=== PATIENT | female | born 1950 | race Caucasian/White ===

== ENCOUNTER 2016-08-25 18:30 | Emergency (ER) | payer MEDICARE ==
[2016-08-25 18:57] VITALS: BP 121/68
--- NOTE | 2016-08-25 19:44 | ER Document Report ---
ED Medical Screen (RME) - General Stated Complaint: CHEST PAIN,HEADACHE,SHOULDER PAIN Notes: 66 yo female c/o migraine headache x 5 days, hx/o chronic headaches. severe acid reflux after eating, no relief with TUMS and normal meds. shooting pains across front of chest intermittantly. reports having chest pain since having reflux. this chest pain is not new, but had [place] in May. TRAVEL OUTSIDE OF THE [place] 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 Has IVC filter as well. GI Medical History: Reports: Hx Gastroesophageal Reflux Disease Past Surgical History: Reports: Hx Abdominal Surgery, Hx Appendectomy, Hx Breast Surgery, Hx Hysterectomy, Hx Orthopedic Surgery - bilat knee replacement , R shoulder, L elbow, - Immunizations Hx Diphtheria, Pertussis, Tetanus Vaccination: No Physical Exam - Vital signs Vitals: Temp Pulse Resp BP Pulse Ox 98.0 F 93 20 121/68 93 08/25/16 18:56 08/25/16 18:56 08/25/16 18:56 08/25/16 18:56 08/25/16 18:56 Course - Vital Signs Vital signs: Temp Pulse Resp BP Pulse Ox 98.0 F 93 20 121/68 93 08/25/16 18:56 08/25/16 18:56 08/25/16 18:56 08/25/16 18:56 08/25/16 18:56
[2016-08-25 20:48] LABS: ABSOLUTE BASOPHILS # (AUTO) 0.1 10^3/uL (0.0-0.2); ABSOLUTE EOSINOPHILS # (AUTO) 0.4 10^3/uL (0.0-0.6); ABSOLUTE LYMPHOCYTES (AUTO) 2.7 10^3/uL (0.5-4.7); ABSOLUTE MONOCYTES (AUTO) 0.9 10^3/uL (0.1-1.4); ABSOLUTE NEUT (AUTO) 5.3 10^3/uL (1.7-8.2); BASOPHILS % (AUTO) 0.8 % (0-2); EOSINOPHILS % (AUTO) 4.1 % (0-6); HEMATOCRIT 38.7 % (36.0-47.0); HEMOGLOBIN 12.7 g/dL (12.0-15.5); HGB HCT DIFFERENCE -0.6; LYMPHOCYTES % (AUTO) 28.6 % (13-45); MEAN CORPUSCULAR HEMOGLOBIN 30.2 pg (27.0-33.4); MEAN CORPUSCULAR HGB CONC 32.8 g/dL (32.0-36.0); MEAN CORPUSCULAR VOLUME 92 fl (80-97); MONOCYTES % (AUTO) 9.2 % (3-13); RED BLOOD COUNT 4.21 10^6/uL (3.72-5.28); RED CELL DISTRIBUTION WIDTH 13.9 % (11.5-14.0); SEGMENTED NEUTROPHILS % (AUTO) 57.3 % (42-78); WHITE BLOOD COUNT 9.3 10^3/uL (4.0-10.5)
[2016-08-25 21:06] LABS: ALANINE AMINOTRANSFERASE 24 U/L (9-52); ALBUMIN 4.5 g/dL (3.5-5.0); ALKALINE PHOSPHATASE 67 U/L (38-126); ANION GAP 10 (5-19); ASPARTATE AMINO TRANSFERASE 19 U/L (14-36); BILIRUBIN,TOTAL 0.4 mg/dL (0.2-1.3); BLOOD UREA NITROGEN 36 mg/dL (7-20); CARBON DIOXIDE 30 mmol/L (22-30); CHLORIDE 100 mmol/L (98-107); CREATINE KINASE 99 U/L (30-135); CREATININE RESULT 1.35 mg/dL (0.52-1.25); GLUCOSE 119 mg/dL (75-110); LIPASE 41.4 U/L (23-300); POTASSIUM 4.1 mmol/L (3.6-5.0); SODIUM 139.5 mmol/L (137-145)
[2016-08-25 21:20] LABS: CREATINE KINASE MB 0.84 ng/mL (<4.55)
[2016-08-25 21:21] LABS: TROPONIN I < 0.012 ng/mL
--- NOTE | 2016-08-26 11:22 | EKG REPORT ---
SEVERITY:- NORMAL ECG - SINUS RHYTHM : Confirmed by: Pravin Kearney 26-Aug-2016 11:21:39
== END 2016-08-25 20:50 | disposition left against medical advice (07) ==
LOC: ER 18:30
DX: R07.9 Chest pain, unspecified (principal); R51 Headache; M25.519 Pain in unspecified shoulder; Z53.9 Procedure and treatment not carried out, unspecified reason
CPT/HCPCS: 36415; 80053; 82550; 82553; 83690; 84484; 85025; 93005; 93010